=== PATIENT | female | born 1955 | race Caucasian/White ===

== ENCOUNTER 2021-02-13 16:25 | Emergency (ER) | payer MEDICARE ==
[~2021-02-13] VITALS: Ht 167.6 cm; Wt 83.9 kg
[2021-02-13] MEDS ORDERED: TESSALON PERLE100 MG PO (18:23)
[2021-02-13] MEDS ORDERED: AZITHROMYCIN250 MG PO (18:23)
[2021-02-13] MEDS ORDERED: ACETAMINOPHEN500 MG PO (18:23)
[2021-02-13] MEDS ORDERED: CITALOPRAM HBR20 MG PO (19:19)
[2021-02-13] MEDS ORDERED: DIOVAN80 MG PO (19:19)
[2021-02-13] MEDS ORDERED: ZOLPIDEM TARTRAT5 MG PO (19:19)
[2021-02-13] MEDS ORDERED: HYDROXYZINE HCL25 MG PO (19:19)
[2021-02-13] MEDS ORDERED: METOPROLOL SUCC25 MG PO (19:21)
[2021-02-13] MEDS ORDERED: SIMVASTATIN20 MG PO (19:21)
[2021-02-13] MEDS ORDERED: ASPIRIN EC81 MG PO (19:21)
== END 2021-02-13 19:09 | disposition home or self-care (01) ==
LOC: FSED 16:52
DX: J06.9 Acute upper respiratory infection, unspecified (principal); J40 Bronchitis, not specified as acute or chronic; R51.9 Headache, unspecified; I10 Essential (primary) hypertension
CPT/HCPCS: 99283

== ENCOUNTER → 2021-11-08 | Day surgery (SDC) | payer MEDICARE ==
[~2021-11-08] MED LIST: ACETAMINOPHEN500 MG PO; ASPIRIN EC81 MG PO; AZITHROMYCIN250 MG PO; CITALOPRAM HBR20 MG PO; DIOVAN80 MG PO; DIPHENHYDRAMINE HCL INJ 50 MG/ML VIAL ONE; FENTANYL CITRATE/PF 100MCG/2 ML INJ ONE; GLUCAGON FOR INJ 1 MG VIAL ONE; HYDROXYZINE HCL25 MG PO; HYOSCYAMINE SULFATE 0.5 MG/ML INJ ONE; LEVOTHYROXINE75 MCG PO; LIDOCAINE HCL 2% LOCAL INJ 5 ML SDV VIAL INJ ONE; METOPROLOL SUCC25 MG PO; MIDAZOLAM HCL 2 MG/2 ML VIAL ONE; ONDANSETRON HCL INJ 2MG/ML 2ML 2 MG/ML VIAL ONE; PROPOFOL IV EMULSION 10 MG/ML 20 ML VIAL ONE; SIMVASTATIN20 MG PO; SUCRALFATE1 GM PO; TESSALON PERLE100 MG PO; ZOLPIDEM TARTRAT5 MG PO
[2021-11-08 11:00] VITALS: BP 110/66
== END | disposition home or self-care (01) ==
LOC: OR 07:35
PROVIDERS: ATTEND Internal Medicine Gastroenterology
DX: D64.89 Other specified anemias (principal); D12.3 Benign neoplasm of transverse colon; K29.70 Gastritis, unspecified, without bleeding; K25.9 Gastric ulcer, unspecified as acute or chronic, without hemorrhage or perforation; K22.70 Barrett's esophagus without dysplasia; K21.9 Gastro-esophageal reflux disease without esophagitis; K59.00 Constipation, unspecified; K44.9 Diaphragmatic hernia without obstruction or gangrene; K57.30 Diverticulosis of large intestine without perforation or abscess without bleeding; K64.8 Other hemorrhoids; Z71.3 Dietary counseling and surveillance; J44.9 Chronic obstructive pulmonary disease, unspecified; I10 Essential (primary) hypertension; R00.1 Bradycardia, unspecified; E78.5 Hyperlipidemia, unspecified; Z01.810 Encounter for preprocedural cardiovascular examination; Z01.812 Encounter for preprocedural laboratory examination; Z20.822 Contact with and (suspected) exposure to COVID-19; Z79.82 Long term (current) use of aspirin; Z79.899 Other long term (current) drug therapy; Z68.27 Body mass index [BMI] 27.0-27.9, adult
CPT/HCPCS: 43239; 45385; 93005; C9113; J1200; J1610; J1980; J2001; J2250; J2405; J2704; J3010; U0002; 45378

== ENCOUNTER → 2024-10-09 | Day surgery (SDC) | payer MEDICARE ==
[~2024-10-09] MED LIST changes: +BUSPIRONE HCL10 MG PO; +CALTRATE 600 W1 EACH PO; +CYMBALTA30 MG PO; -DIPHENHYDRAMINE HCL INJ 50 MG/ML VIAL ONE; +DOXEPIN HCL25 MG PO; +ELIQUIS5 MG PO; +EPHEDRINE SULFATE INJ 50 MG/ML VIAL ONE; +FERROUS SULFAT324 MG PO; +FISH OIL 1,4001 EAC1 PO; -HYOSCYAMINE SULFATE 0.5 MG/ML INJ ONE; +MELOXICAM7.5 MG PO; +METOCLOPRAM5 MG/5 ML PO; -MIDAZOLAM HCL 2 MG/2 ML VIAL ONE; +MULTI-VITAMIN1 EACH PO; -ONDANSETRON HCL INJ 2MG/ML 2ML 2 MG/ML VIAL ONE; +PROPOFOL IV EMULSION 50 ML IV ONE; +PROTONIX40 MG PO; +WELLBUTRIN XL150 MG PO
[2024-10-09] MEDS: LACTATED RINGER'S 1,000 ML ONE (08:06)
[2024-10-09 09:30] VITALS: TEMP 97.2
[2024-10-09 09:45] VITALS: BP 124/55; PULSE 64; RESP 16; O2SAT 97
[2024-10-13 14:11] LABS: IMMUNOGLOBULIN A 128 mg/dL (87-352)
== END | disposition home or self-care (01) ==
LOC: OR 07:19
PROVIDERS: ATTEND Internal Medicine Gastroenterology
DX: K29.70 Gastritis, unspecified, without bleeding (principal); Z86.0100 Personal history of colon polyps, unspecified; D64.9 Anemia, unspecified; K44.9 Diaphragmatic hernia without obstruction or gangrene; K20.90 Esophagitis, unspecified without bleeding; K57.30 Diverticulosis of large intestine without perforation or abscess without bleeding; K28.9 Gastrojejunal ulcer, unspecified as acute or chronic, without hemorrhage or perforation; K21.9 Gastro-esophageal reflux disease without esophagitis; I10 Essential (primary) hypertension; E78.5 Hyperlipidemia, unspecified; J44.9 Chronic obstructive pulmonary disease, unspecified; E03.9 Hypothyroidism, unspecified; M19.90 Unspecified osteoarthritis, unspecified site; G89.29 Other chronic pain; F41.9 Anxiety disorder, unspecified; F32.A Depression, unspecified; Z79.02 Long term (current) use of antithrombotics/antiplatelets; Z79.82 Long term (current) use of aspirin; Z79.1 Long term (current) use of non-steroidal anti-inflammatories (NSAID); Z79.899 Other long term (current) drug therapy
CPT/HCPCS: 43239; 45378; 82784; 93005; J1610; J2003; J2470; J2704 ×2; J3010; J7121; 83516; 86256

== ENCOUNTER → 2024-11-12 | Outpatient (REF) | payer MEDICARE ==
[~2024-11-12] MED LIST changes: -EPHEDRINE SULFATE INJ 50 MG/ML VIAL ONE; -FENTANYL CITRATE/PF 100MCG/2 ML INJ ONE; -GLUCAGON FOR INJ 1 MG VIAL ONE; -LIDOCAINE HCL 2% LOCAL INJ 5 ML SDV VIAL INJ ONE; -PROPOFOL IV EMULSION 10 MG/ML 20 ML VIAL ONE; -PROPOFOL IV EMULSION 50 ML IV ONE
== END ==
LOC: DX 08:03
PROVIDERS: ATTEND Nurse Practitioner
DX: D64.89 Other specified anemias (principal)
CPT/HCPCS: 74250